=== PATIENT | female | born 1980 | race Two or more races ===

== ENCOUNTER 2022-10-06 14:24 | Emergency (ER) | payer OTHER ==
[2022-10-06 14:35] VITALS: BP 151/84; PULSE 75; RESP 18; TEMP 98; BMI 36.5
== END 2022-10-06 16:30 | disposition home or self-care (01) ==
LOC: JERFT 14:24
PROC: 0H97XZZ Drainage of Abdomen Skin, External Approach (ICD-10-PCS; principal; 2022-10-06)
DX: L90.5 Scar conditions and fibrosis of skin (principal); L98.8 Other specified disorders of the skin and subcutaneous tissue
CPT/HCPCS: 99283-25